=== PATIENT | female | born 1995 | race Caucasian/White ===

== ENCOUNTER 2019-01-03 17:24 | Emergency (ER) | payer BC ==
[~2019-01-03] VITALS: Ht 160 cm; Wt 61.4 kg
[2019-01-03 18:05] VITALS: BP 146/97; TEMP 98.2
[2019-01-03] MEDS ORDERED: NORCO 325 MG-51 TAB PO (20:32)
[2019-01-03 20:46] VITALS: PULSE 97
== END 2019-01-03 20:46 | disposition home or self-care (01) ==
LOC: COL.ER 17:24
DX: S89.92XA Unspecified injury of left lower leg, initial encounter (principal); X50.1XXA Overexertion from prolonged static or awkward postures, initial encounter; Y93.89 Activity, other specified
CPT/HCPCS: L1846

== ENCOUNTER 2020-10-19 02:50 | Outpatient (CLI) | payer BC ==
[~2020-10-19] VITALS: Ht 160 cm; Wt 77.3 kg
[~2020-10-19 02:50] MED LIST: NORCO 325 MG-51 TAB PO
--- NOTE | 2020-10-19 03:10 | NUR ---
0310 G1L0 39.2 WEEK GEST TO LR6 WITH C/O SOME CONTRACTIONS. WAS AT WORK TONIGHT AT HOSPITAL IN [place] AND FELT LIKE HAVING CONTRACTIONS SO WAS PUT ON EFM THERE. AFTER FEW MINUTES ON MONITER A ONE MINUTE DECEL WAS NOTED FROM BASELINE 130'S TO 60'S AND RECOVERY BACK TO BASELINE. WAS LEFT ON EFM THERE FOR SEVERAL MINUTES AFTER WITH NO FURTHER DECELS NOTED AND GOOD VARIABILITY. THE DOCTOR IN [place] TOLD HER TO COME TO [facility] PER PRIVATE CAR TO BE CHECKED OUT. EFM APPLIED. BASELINE 140. DECREASE IN FHT'S FROM BASELINE 140 TO 120 OVER 50 SECONDS NOTED WITH CONTRACTIONS AFTER PUT ON MONITER. TO LL AND ADM ASSESSMENT COMPLETED. 0330 EFM /2 WITH NO CHANGE SINCE EXAM IN OFFICE ON SATURDAY. BABY VERY ACTIVE. RESTING ON SIDE. 0405 DR [place] NOTIFIED OF PT AND COMPLAINT AND OF DECELS X2 NOTED. GOOD VARIABILITY AND ACCELS NOTED SINCE PT ARRIVED TO UNIT. CONTRACTIONS MILD CONTINUE. ORDERS GIVEN.
[2020-10-19] MEDS ORDERED: PRENATAL TABLET PO (03:14)
[2020-10-19] MEDS ORDERED: CALCIUM 600 PLU1 TAB PO (03:15)
[2020-10-19] MEDS ORDERED: PROBIOTIC DIGE1 EACH PO (03:16)
[2020-10-19 03:20] VITALS: BP 137/87; PULSE 94; TEMP 98.1
[2020-10-19 04:20] VITALS: BP 120/64; PULSE 85
--- NOTE | 2020-10-19 04:30 | NUR ---
0430 SVE WITH NO CERVICAL CHANGE. STATES FEELS LIKE CONTRACTIONS MORE PAINFUL. TALKS THRU THEM AND SEEMS COMFORTABLE. DISMISS INSTRUCTIONS GIVEN. 0445 HOME WITH INSTRUCTIONS.
== END 2020-10-19 04:45 | disposition home or self-care (01) ==
LOC: LDRO 02:50 → LDR 02:50 → LDRO 04:45
DX: O62.9 Abnormality of forces of labor, unspecified (principal); Z3A.39 39 weeks gestation of pregnancy
CPT/HCPCS: OP

== ENCOUNTER 2020-10-19 19:44 | Inpatient (IN) | payer BC ==
[2020-10-19] VITALS (9 sets, daily range): BP systolic 108–133; BP diastolic 62–83; PULSE 75–102; TEMP 97.6–98.8
[~2020-10-19] VITALS: Ht 160 cm; Wt 77.3 kg
--- NOTE | 2020-10-19 | NUR ---
Pushing, pt states "i think I feel a little bit of pressure, sometimes" epidural continues off.
[~2020-10-19 19:44] MED LIST changes: +CALCIUM 600 PLU1 TAB PO; +PRENATAL TABLET PO; +PROBIOTIC DIGE1 EACH PO
--- NOTE | 2020-10-19 19:55 | NUR ---
G1 at 39 weeks and 2 days arrives to unit with complaint of contractions every 3-5 minutes. Pt denies LOF or vaginal bleeding. Pt reports feeling good movement. Pt denies problems this . Pt denies headaches, blurry vision, or RUQ pain. Clean gown on. Oriented to room, call light within reach, bed in low and locked position. US and toco explained and applied. Vital signs obtained. Admission assessment started. SVE 2/90/-2, vertex position, membranes intact.
--- NOTE | 2020-10-19 20:15 | NUR ---
Pt calls out stating she thinks her water broke. Upon examination, grossly ruptured, amnitrace positive. SVE /-2, much clear fluid out on exam. Pt visibly more uncomfortable than on admission.
[2020-10-19 21:09] LABS: BASO % 0.3 % (0.0-2.0); EOS % 0.1 % (0-4.0); GRAN # 5.4 (1.4-6.5); GRAN % 70.1 % (42.2-75.2); HEMATOCRIT 47.4 % (37.0-47.0); HEMOGLOBIN 14.9 g/dl (12.5-16.0); LYMPH # 1.6 (1.2-3.4); LYMPH % 21.2 % (20.0-51.0); MEAN CELL VOLUME 98 fl (80.0-100.0); MEAN CORPUSCULAR HEMOGLOBIN 31 pg (27.0-31.0); MEAN CORPUSCULAR HGB CONC 31 g/dl (33.0-37.0); MEAN PLATELET VOLUME 11.9 fl (7.4-10.4); MONO # 0.6 (0.1-0.6); MONO % 7.9 % (1.7-9.3); PLATELET COUNT 164 K/mm3 (130-400); RED BLOOD COUNT 4.85 M/mm3 (4.10-5.30); REDCELL DISTRIBUTION WIDTH-CV 14.4 % (11.5-14.5)
--- NOTE | 2020-10-19 21:10 | NUR ---
To edge of bed for epidural placement. Inga PASTEURIZER HELPER into room. see anesthesia record.
--- NOTE | 2020-10-19 23:30 | NUR ---
Pushing, unable to tell when contractions are. Epidural turned off.
--- NOTE | 2020-10-19 23:40 | NUR ---
contractions spacing out, pt continues pushing, ptnot able to tell when contractions are happening. Dr Negros into room to ck progress. will start pitocin augmentation
[2020-10-20] VITALS (18 sets, daily range): BP systolic 106–139; BP diastolic 56–76; PULSE 90–118; TEMP 97.7–98.9
--- NOTE | 2020-10-20 00:35 | NUR ---
EMESIS. Pushing delayed. 0050 Tp Cristina. 0055 To [employer] to start pushing. Epidural continues off.
--- NOTE | 2020-10-20 01:08 | NUR ---
FHT's to 80's with pushing, continues in 80's -90's with cessation of pushing and 2 min after.To 130's , then gradual late deceleration to 70's, with rapid return to 150's with onset of next contraction. Rapid deceleration to 70's-80's. To Wedge R , gradual return to baseline over 2 minutes.
--- NOTE | 2020-10-20 01:18 | NUR ---
Pushing resumed. Pt starting to "feel pressure when I push" making little change in descent with pushing. Dr Kulkarni notified of FHT's and progress.
--- NOTE | 2020-10-20 01:21 | NUR ---
Dr Kulkarni into room, assess FHT's and psuhing progress. discusses vacuum assist with pt and spouse, questions invited and answered. Pt set up and prepped for delivery. Straight cath by Dr Kulkarni with return moderate amount clear yellow urine. FSE removed, FHT's by external monitor. Pushing well, moving baby. 0128 FHT's with decels to 100's wth pushing, baby starting to crown. [address] Kulkarni.
--- NOTE | 2020-10-20 01:40 | NUR ---
placenta delivers spont and intact with 3 vessel cord. Ptiocin gtt to bolus rate. 0145 Perineal inspection reveals R side wall laceration. technical laboratory asst in to hold retractor to assist with repair.
--- NOTE | 2020-10-20 01:55 | NUR ---
Perineal repair continues. Epidural infusing. Pt tolerating well. 0205 Perineal repair complete, pericare completed, ice pack to perineum, bed together.
--- NOTE | 2020-10-20 04:30 | NUR ---
Unable to lift hips off bed. Pericare completed, fresh ice pack applied. Clean gown on. IV to ESTEPHANIE, Epidural dc'd. Motrin given, has had snack and juice. Encouraged to rest.
--- NOTE | 2020-10-20 05:35 | NUR ---
Up to bathroom with careful gait. Pt states "I feel like the R leg is still not real good yet." Unable to void, performs own pericare. To wheelchair for transfer to .
--- NOTE | 2020-10-21 06:48 | NUR ---
REPROT RECEIVED FROM OFF GOING RN, ANAI, CARE TAKEN OVER BY THIS RN.
[2020-10-21 08:12] VITALS: BP 122/75; PULSE 89; TEMP 98.9
[2020-10-21] MEDS ORDERED: MOTRIN 800800 MG/TAB PO (08:25)
== END 2020-10-21 11:40 | disposition home or self-care (01) | DRG 807 ==
LOC: LDRO 19:44 → LDR 20:14 → LDRO 20:27 → LDR 20:37 → OB 10-20 06:19
PROVIDERS: ADMIT Obstetrics & Gynecology
PROC: 10E0XZZ Delivery of Products of Conception, External Approach (ICD-10-PCS; principal; 2020-10-19)
PROC: 0KQM0ZZ Repair Perineum Muscle, Open Approach (ICD-10-PCS; 2020-10-19)
DX: O70.1 Second degree perineal laceration during delivery (principal); Z37.0 Single live birth; Z3A.39 39 weeks gestation of pregnancy
CPT/HCPCS: OP; J2590; J7120

== ENCOUNTER 2023-10-27 19:58 | Inpatient (IN) | payer OTHER ==
[~2023-10-27] VITALS: Ht 160 cm; Wt 80.5 kg
[~2023-10-27 19:58] MED LIST changes: +MOTRIN 800800 MG/TAB PO
[2023-10-27 20:30] VITALS: BP 138/77; PULSE 113; TEMP 98
[2023-10-27] MEDS ORDERED: LR 1,000 ML IV PRN (20:45)
[2023-10-27] MEDS ORDERED: Penicillin G Potassium 5,000,000 UNITS in NS 100 ML IV ONE (22:30)
[2023-10-27] MEDS ORDERED: LR & Oxytocin 500 ML IV SCH ×2 (22:30)
[2023-10-27] MEDS ORDERED: LR 1,000 ML IV SCH (22:30)
[2023-10-27 22:40] LABS: BASO % 0.3 % (0.0-2.0); EOS # 0.1 K/mm3 (0.0-0.7); EOS % 0.7 % (0.0-4.0); GRAN # 5.3 K/mm3 (1.4-6.5); GRAN % 69.9 % (42.2-75.2); HEMATOCRIT 38.1 % (37.0-47.0); LYMPH # 1.7 K/mm3 (1.2-3.4); LYMPH % 21.8 % (20.0-51.0); MEAN CELL VOLUME 90 fl (80.0-100.0); MEAN CORPUSCULAR HEMOGLOBIN 31 pg (27-31); MEAN CORPUSCULAR HGB CONC 34 g/dl (33.0-37.0); MEAN PLATELET VOLUME 10.7 fl (7.4-10.4); MONO # 0.5 K/mm3 (0.1-0.6); PLATELET COUNT 157 K/mm3 (130-400); RED BLOOD COUNT 4.24 M/mm3 (4.10-5.30); REDCELL DISTRIBUTION WIDTH-CV 15.1 % (11.5-14.5)
[2023-10-27 23:30] VITALS: BP 104/64; PULSE 98
[2023-10-28] VITALS (40 sets, daily range): BP systolic 78–132; BP diastolic 46–86; PULSE 1–110; TEMP 97.8–99
--- NOTE | 2023-10-28 00:35 | NUR ---
Off monitor to ambulate, sit on bityhing ball. Pt reports contractions have gotten further apart and not as strong. Review plan to go back on monitor at 0115, SVE and assess need for Pitocin augmentation. Pt agrees with plan.
--- NOTE | 2023-10-28 01:45 | NUR ---
30units Oxytocin in 500cc LR piggybacked into mainline LR and started at 2mu per pump.
[2023-10-28] MEDS ORDERED: Penicillin G Potassium 2,500,000 UNITS in NS 100 ML IV SCH (02:30)
--- NOTE | 2023-10-28 04:30 | NUR ---
Pt alternating between birthing ball and standing at bedside. Reports "the ctx are getting stronger, I may be getting close to wanting epidural" attentive at bedside.
--- NOTE | 2023-10-28 04:40 | NUR ---
Pt nauseated. states "I think I'm ready for the epidural." 6619 Emesis. Anesthesia notified of request for epidural.
--- NOTE | 2023-10-28 05:08 | NUR ---
SHAILESH SSDS MK 2 ADVANCED OPERATOR into room for epidural placement. Pt up on bed. EFM not tracing.
[2023-10-28] MEDS ORDERED: ePHEDrine 50 MG/10 ML VIAL IV PRN (05:45)
[2023-10-28] MEDS ORDERED: diphenhydrAMINE 25 MG CAP PO PRN (05:45)
[2023-10-28] MEDS ORDERED: Naloxone 0.4 MG/ML VIAL IV PRN ×2 (05:45→10:15)
[2023-10-28] MEDS ORDERED: Ondansetron 4 MG/2 ML VIAL IV PRN (05:45)
[2023-10-28] MEDS ORDERED: diphenhydrAMINE 50 MG/ML 1 ML VIAL IV PRN (05:45)
--- NOTE | 2023-10-28 06:15 | NUR ---
THIS RN RECEIVES REPORT AT THIS TIME FROM FEDE, CARE OF PT NOW ASSUMED BY THIS RN
--- NOTE | 2023-10-28 06:15 | NUR ---
THIS RN AT PT BEDSIDE AND RESET VS TO TAKE Q 15MIN, NO VS AVAILABLE TO BE RECORDED AT 0615. PT AWAKE AND ALERT X3
--- NOTE | 2023-10-28 09:55 | NUR ---
0910 SVE 9-/0 PER THIS RN. NOTIFIED AND DISCUSSED PRACTICE PUSHES TO DETERMINE PROGRESS OF PUSHING WHEN PT AT COMPLETE DILATION. PLAN OF CARE DISCUSSED WITH PT AND SPOUSE AND PT VERBALLY AGREES. ROOM SET FOR DELIVERY AND THIS RN EDUCATES PT AND SPOUSE ON PUSHING AND PLAN OF CARE FOR DELIVERY. 0935 SVE /0 PER THIS RN, CHARGE NURSE, NURSERY NURSE, AND NOTIFED. PT REPOSIITONED IN STIRRUPS AND VERBALLY UNDERSTANDS PUSHING. 0937 PT BEGINS PUSHING WITH CONTRACTIONS, PT CAN VERBALIZE FEELING THE NEED TO PUSH. SPOUSE AT PT BEDSIDE SUPPORTIVE. 0950 AT PT BEDSIDE WHILE PT CONTINUES TO PUSH. PT VS STABLE AND TOLERATING PUSHING. CHARGE NURSE AND NURSERY NURSE AT PT BEDSIDE. SPOUSE SUPPORTIVE AT PT BEDSIDE. 0955 OF VIABLE FEMALE INFANT, PLACED ON MATERNAL CHEST AND CORD DELAYED CLAMPING PER . AFTER CORD DONE PULSATING, CORD IS THEN CLAMPED PER AND PT SPOUSE CUT CORD. BABY FULLY HANDED OVER TO NURSERY NURSE TO ASSUME CARE. CORD BLOOD SENT WITH CHARGE NURSE TO LAB. 0959 OF PLACENTA, BEGINS REPAIR OF 2ND DEGREE LACERATION. PITOCIN BEGUN PER THIS RN. AFTER REPAIR PT REPOSITIONED COMFORTABLY, PT FUNDUS FIRM AT UMBILICUS, SCANT LOCHIA WITH NO CLOTS. PT COMFORTABLE WITH ICE PACK PAD PLACED ON PT PERINEUM, PERINEUM SWOLLEN. PT VS STABLE AND AWAKE AND ALERT X3, PT DOES NOT REPORT FEELING ANY PAIN OR DISCOMFORT.
[2023-10-28] MEDS ORDERED: Phenylephrine/Mineral Oil/Petrolatum 57 GM TUBE RC PRN (10:15)
[2023-10-28] MEDS ORDERED: oxyCODONE 5 MG TAB PO PRN (10:15)
[2023-10-28] MEDS ORDERED: Witch Hazel 50% Pads Bulk TUB TP PRN (10:15)
[2023-10-28] MEDS ORDERED: Loratadine 10 MG TAB PO PRN (10:15)
[2023-10-28] MEDS ORDERED: Mag/Al Hydrox/Simeth Susp 30 ML CUP PO PRN (10:15)
[2023-10-28] MEDS ORDERED: Measles/Mumps/Rubella Virus Vaccine Live w Diluent 0.5 ML VIAL SQ SCH (10:15)
[2023-10-28] MEDS ORDERED: Magnes Hydrox (MOM) 80 MG/ML 30 ML CUP PO PRN (10:15)
[2023-10-28] MEDS ORDERED: Ibuprofen 600 MG TAB PO SCH (10:30)
[2023-10-28] MEDS ORDERED: Acetaminophen 500 MG TAB PO SCH (10:30)
[2023-10-28] MEDS ORDERED: Sennosides/Docusate 8.6-50 MG TAB PO SCH (17:00)
[2023-10-28] MEDS ORDERED: traZODone 50 MG TAB PO PRN (21:00)
[2023-10-29 03:12] VITALS: BP 122/85; PULSE 75; TEMP 97.8
[2023-10-29] MEDS ORDERED: IBU600 MG PO (08:19)
[2023-10-29 09:15] VITALS: BP 112/71; PULSE 86; TEMP 97.7
--- NOTE | 2023-11-25 13:55 | NUR ---
DOWNTIME NOTE: An Electronic Health Record (EHR) downtime event occurred during this patient's care. For legal medical record information generated during the downtime period, please reference the patient's legal medical record. Paper or scanned documentation has been incorporated into the legal medical record which is maintained in accordance with Health Information Management (HIM) and record retention policies.
== END 2023-10-29 14:00 | disposition home or self-care (01) | DRG 807 ==
LOC: LDRO 19:58 → LDR 21:40 → OB 10-28 12:00
PROVIDERS: Student in an Organized Health Care Education/Training Program; ADMIT Obstetrics & Gynecology
PROC: 10E0XZZ Delivery of Products of Conception, External Approach (ICD-10-PCS; principal; 2023-10-28)
PROC: 0KQM0ZZ Repair Perineum Muscle, Open Approach (ICD-10-PCS; 2023-10-28)
DX: O36.5930 Maternal care for other known or suspected poor fetal growth, third trimester, not applicable or unspecified (principal); Z37.0 Single live birth; Z3A.41 41 weeks gestation of pregnancy; O48.0 Post-term pregnancy; O70.1 Second degree perineal laceration during delivery; O99.824 Streptococcus B carrier state complicating childbirth; O99.284 Endocrine, nutritional and metabolic diseases complicating childbirth; E28.2 Polycystic ovarian syndrome; O31.13X0 Continuing pregnancy after spontaneous abortion of one fetus or more, third trimester, not applicable or unspecified
CPT/HCPCS: J2540; J2590; J7120